=== PATIENT | female | born 2000 | race Asian ===

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

== ENCOUNTER 2024-05-21 22:20 | Emergency (ER) | payer MEDICAID, OTHER ==
[~2024-05-21] VITALS: Ht 154.9 cm; Wt 61.7 kg
[2024-05-21 22:27] VITALS: BP_SYST 144; PULSE 88; RESP 16; TEMP 97.3; O2SAT 99
[2024-05-21] MEDS: NACL 0.9% 1,000 ML IV ONE (23:00)
[2024-05-21] MEDS: METOCLOPRAMIDE HCL 10 MG/2 ML VIAL IVP ONE (23:02)
[2024-05-21] MEDS: GLUCAGON,HUMAN RECOMBINANT 1 MG VIAL IVP ONE (23:02)
[2024-05-22 00:06] VITALS: BP_SYST 114; PULSE 70; RESP 20; TEMP 97.6; O2SAT 100
== END 2024-05-22 00:06 | disposition home or self-care (01) ==
LOC: SED 22:20
DX: T18.198A Other foreign object in esophagus causing other injury, initial encounter (principal); R11.2 Nausea with vomiting, unspecified; Z91.010 Allergy to peanuts; W44.8XXA Other foreign body entering into or through a natural orifice, initial encounter; Y93.89 Activity, other specified; Y92.89 Other specified places as the place of occurrence of the external cause; Y99.8 Other external cause status
CPT/HCPCS: 99284; 96374; 96375; J1610; J2765; J7030